=== PATIENT | female | born 1975 | race Caucasian/White ===

== ENCOUNTER → 2018-10-17 19:20 | Outpatient (CLI) | payer OTHER, SELFPAY | PROVIDERS: Visit Provider Physician Assistant | DX: N39.0 Urinary tract infection, site not specified (principal) | CPT/HCPCS: 87077; 87086; 87186 ==

== ENCOUNTER 2019-03-14 10:09 | Day surgery (SDC) | payer OTHER, SELFPAY ==
[2019-03-12 08:30] VITALS: BMI 19.1
[2019-03-14] VITALS (14 sets, daily range): BP systolic 96–111; BP diastolic 50–72; PULSE 70–97; RESP 12–19; TEMP 36.2–37.1; O2SAT 94–100; BMI 19.1
--- NOTE | 2019-03-14 | PATH_ITS ---
[facility] Accession Number: [id number] . 01 Material submitted: . uterus - UTERUS AND BOTH FALLOPIAN TUBES . 01 Clinical history: . PELVIC *OPB* . 02 Diagnosis: Uterus and Fallopian Tubes, Hysterectomy and Bilateral Salpingectomy (Morcellated Specimen, Weight 171 grams): Proliferative endometrium; negative for glandular hyperplasia, cytologic atypia, and malignancy. Myometrium with multiple intramural leiomyomas (0.2-6.5 cm in greatest dimension). Uterine serosa with patchy adhesions, nonspecific. Fallopian tube #1 with no significant histomorphologic abnormality. Fallopian tube #2 with no significant histomorphologic abnormality. V 03/18/2019 1002 Local . 02 Electronically signed: . Leatha Cotter MD, Pathologist NPI- [id number] . 01 Gross description: . Received in formalin, labeled uterus, both fallopian tubes, is a morcellated uterus (171 grams, 15.2 x 14.5 x 2.8 cm in aggregate) and two fimbriated fallopian tubes (tube #1: length-6.2 cm, diameter-0.5 cm; tube #2: length-3.2 cm, diameter-0.5 cm). The cervix and ovaries are absent. The specimen cannot be oriented and the endometrium and myometrium cannot be grossly measured. The parenchyma is villanueva and contains multiple solid firm white whorled homogeneous well-circumscribed nodules (0.2 x 0.1 x 0.1 cm-6.5 x 3.5 x 3.2 cm). The serosa is villanueva smooth and shiny. The fallopian tubes have morales-purple smooth shiny serosa and villanueva unremarkable lumens. Section code: (A1-A4) parenchyma, volunteer patient representative; (A5) fallopian tube #1, volunteer patient representative serial sections; (A6) fimbria #1, bivalved, entirely submitted; (A7) fallopian tube #2, volunteer patient representative serial sections; (A8) fimbria #2, bivalved, entirely submitted. ([id number]) /MRV 03/15/2019 1326 Local . 02 Pathologist provided ICD-10: N92.0, D25.0, N80.0, M62.89 . 02 CPT . 992089 Performed at: 01 [facility] [address] [id number] MD Raymundo Zhang MD Phone: [phone] Performed at: 02 [facility] [address] [address] [place], [place] [id number] MD Katarina Currie MD Phone: [phone]
[2019-03-14] MEDS: LACTATED RINGERS 1,000 ML 42 ML IV (10:36)
--- NOTE | 2019-03-14 11:45 | PM.PREOP ---
Pre-operative Note Interval Note History & Physical reviewed/Exam performed by Physician: Yes Changes to H&P: No H&P completed within 30 days and has changed as indicated here:: See outpatient note from 03/07/2019
[2019-03-14] MEDS: CEFAZOLIN 2 GM/100 ML FROZ.PIGGY IV (13:00)
--- NOTE | 2019-03-14 13:41 | SUR.OPER ---
Lithotomy on padded OR bed. Wilberforce Pad Positioner under torso. Head on pillow, arms padded and tucked at sides. Legs secured in padded yellow fins stirrups.
[2019-03-14] MEDS: BUPIVACAINE 0.5% W/ EPI (PF) VIAL 30 ML INJ (13:53)
[2019-03-14] MEDS: ROPIVACAINE 0.2% PF 2 MG/ML 10ML AMP 10 ML INJ (14:03)
--- NOTE | 2019-03-14 14:43 | P.OP_ITS ---
Operative Date/Time/Diagnoses Date of procedure: 03/14/19 Time of procedure: 14:43 Pre-op diagnosis: Menorrhagia Post-op diagnosis: same Procedure & Clinicians Procedure: Laparoscopic supracervical hysterectomy with bilateral salpingectomy Same procedure as scheduled: Yes Indications: Menorrhagia Surgeon: Courtney Hale Biophysics Teacher: Munira Rodriguez Anesthesia Type: General Operative Notes Findings: Enlarged fibroid uterus with normal tubes and ovaries with adhesions in the right lower quadrant, adhesions around the ovaries bilaterally. Closure Type: primary Specimen(s): other (Uterus above the level of the bladder) Estimated Blood Loss (mL): 20 Blood products transfused: none Procedure in detail: Patient is brought to the operating room where she underwent general anesthesia and placed in low [facility] stirrups. She was prepped and draped in the usual sterile fashion. A check list was reviewed with the staff in the room prior to beginning of the case. Patient had pulsatile stockings in place and functional. 2 g of Ancef were in prior to beginning of the case.. A Knox catheter was placed. A single-tooth tenaculum was placed on the anterior lip of the cervix and the cervix dilated to a #6 Hegar dilator. The uterine manipulator was placed through the cervix into the uterus with the balloon inflated with 3 mL of air. The area of the umbilical incision and the 5 mm right and left lower quadrant incisions were injected with Marcaine. An incision was made with scalpel. The verries needle was placed into the abdomen and confirmed in the appropriate place with withdrawal on a syringe and then free flow of fluid down through the needle. The abdomen was insufflated with CO2. The needle was removed and a 5 mm trocar placed without difficulty. There did not appear to be any damage is placement of the trocar. The right and left lower quadrant incisions were made with the scalpel and the trochars placed without damage to internal structures. The PK forceps were used to cauterize along the mesosalpinx followed by the round ligaments on both sides. The utero-ovarian ligaments were cauterized and cut. Sequential bites were taken down the broad ligaments. The uterine arteries were cauterized. An incision was made above the level bladder pushing the bladder away from the cervix. The PAYAM loop was placed around the uterus and the uterus was amputated above the level of the bladder. Bleeding was controlled with the PK forceps. The PK forceps were used to cauterize in the endocervical canal. A supracervical incision was made and an 11 mm port placed. A 15 mm Endo Catch bag was placed in the abdomen. The uterus, tubes and ovaries were placed in the bag and brought up through the suprapubic port site. The Jamar O was placed. The uterus was hand morselized. The abdomen was reinsufflated and adequate hemostasis was noted. The trochars were removed and the CO2 allowed escape from the abdomen. The fascia layer of the suprapubic site was repaired with 0 Polysorb suture. Skin was closed with 4-0 Monocryl suture at the suprapubic site and the other 3 sites. The patient went to recovery room in good condition. Counts of instruments and sponges were correct. Complications: none Post-operative Condition: stable Disposition: observation Plan for aftercare: Home later today if doing well.
[2019-03-14] MEDS: LORazepam 2 MG/ML INJ 0.25 MG IV (15:01)
[2019-03-14] MEDS: fentaNYL 100 MCG/2 ML INJ 50 MCG IV ×3 (15:02→15:30)
[2019-03-14] MEDS: LACTATED RINGERS 1,000 ML 100 ML IV (16:45)
[2019-03-14] MEDS: KETOROLAC 30 MG/ML VIAL IV (17:49)
[2019-03-14] MEDS: OXYCODONE IR 5 MG TABLET 10 MG PO (18:39)
== END 2019-03-14 19:15 | disposition home or self-care (01) ==
LOC: OR 10:11 → AC 17:18
PROVIDERS: Visit Provider Specialist
PROC: 0UT94ZL Resection of Uterus, Supracervical, Percutaneous Endoscopic Approach (ICD-10-PCS; CPT 58542; principal; 2019-03-14 11:15)
DX: D25.0 Submucous leiomyoma of uterus (principal); N92.0 Excessive and frequent menstruation with regular cycle; N73.6 Female pelvic peritoneal adhesions (postinfective); N80.0 Endometriosis of uterus
CPT/HCPCS: 58542; J0690; J1100; J1885; J2060; J2250; J2405; J2704; J2795; J3010